=== PATIENT | female | born 1935 | race Caucasian/White ===

== ENCOUNTER 2018-09-16 21:28 | Observation (INO) ==
[2018-09-16] MEDS ORDERED: Tetanus/Diphtheria Toxoid Adult Vaccine Inj 0.5 ML Vial IM ONE (21:47)
[2018-09-16 22:13] LABS: Baso # (Auto) 0.2 th/mm3 (0.0-0.2); Eos # (Auto) 0.2 th/mm3 (0.0-0.4); Eos % (Auto) 1.7 % (0.0-4.0); Hematocrit 42.7 % (35.0-46.0); Hemoglobin 14.5 gm/dL (11.6-15.3); Lymph # (Auto) 1.2 th/mm3 (1.0-4.8); Lymph % (Auto) 12.3 % (9.0-44.0); Mean Corpuscular HGB Conc 33.9 % (32.0-36.0); Mean Corpuscular Hemoglobin 31.5 pg (27.0-34.0); Mean Platelet Volume 8.3 fL (7.0-11.0); Mono # (Auto) 0.2 th/mm3 (0.0-0.9); Mono % (Auto) 1.8 % (0.0-8.0); Neut # (Auto) 7.9 th/mm3 (1.8-7.7); Neut % (Auto) 82.2 % (16.0-70.0); Platelet Count 282 th/mm3 (150-450); Red Cell Distribution Width 12.4 % (11.6-17.2); White Blood Count 9.7 th/mm3 (4.0-11.0)
[2018-09-16 22:18] LABS: Chloride 99 meq/L (98-107); Potassium 3.6 meq/L (3.5-5.1); Sodium 135 meq/L (136-145)
--- NOTE | 2018-09-16 22:18 | ED ---
HPI General Chief complaint: Fall Stated complaint: fall Time Seen by Provider: 09/16/18 21:31 Source: patient and EMS Mode of arrival: EMS Limitations: physical limitation History of Present Illness HPI narrative: Patient is an 83-year-old female with history of dementia, diabetes, presents to the emergency room after she suffered a mechanical fall today. Patient reports that she was in bed, reports that she got up and tripped and fell into a TV cabinet. Patient did suffer a laceration to her scalp. Patient's did hear her fall and went to her bedside. As per EMS , patient's with dizziness patient having multiple episodes of passing out. Reports that she passed out about 2-3 times with each episode lasting about 20-30 seconds. Patient is not on any blood thinners, patient only complains of headache and scalp pain. Patient denies any chest pain or shortness of breath, denies any abdominal pain, no other complaints. Related Data Home Medications Medication Instructions Recorded Confirmed amlodipine 5 mg PO DAILY 09/16/18 09/16/18 atorvastatin 20 mg PO DAILY 09/16/18 09/16/18 glimepiride 4 mg PO BID 09/16/18 09/16/18 hydrochlorothiazide 25 mg PO DAILY 09/16/18 09/16/18 lisinopril 5 mg PO DAILY 09/16/18 09/16/18 metformin 500 mg PO BID 09/16/18 09/16/18 Allergies Allergy/AdvReac Type Severity Reaction Status Date / Time meperidine Allergy Mild Unverified 05/01/17 21:16 penicillin G Allergy Mild Unverified 05/01/17 21:16 "SPORINS" Allergy Mild rash Uncoded 11/25/15 10:08 Review of Systems ROS: all other systems reviewed are negative [facility] Medical History Medical History History of dementia (Acute) Hx of diabetes mellitus (Acute) Social History Social History Substance History: No History of Abuse Smoking Status: Former smoker Tobacco Type: Cigarettes How Often Do You Have a Drink Containing Alcohol: 4 or more times a week Recent Travel in [facility] within the Last 8 Weeks: No Recent Out of Country Travel within the Last 8 Weeks: No Immunization History Tetanus Immunization: Unsure Exam Narrative Exam Narrative: GENERAL: Moderate distress SKIN: Focused skin assessment warm/dry. HEAD: Normocephalic. Patient with abrasion to her nasal bridge, patient with 6 cm linear laceration to the scalp - bleeding controlled EYES: Pupils equal and round. No scleral icterus. No injection or drainage. ENT: No nasal bleeding or discharge. Mucous membranes pink and moist. NECK: Trachea midline. No JVD. Patient in cervical spine precautions CARDIOVASCULAR: Regular rate and rhythm. No murmur appreciated. RESPIRATORY: No accessory muscle use. Clear to auscultation. Breath sounds equal bilaterally. GASTROINTESTINAL: Abdomen soft, non-tender, nondistended. Hepatic and splenic margins not palpable. MUSCULOSKELETAL: No obvious deformities. No clubbing. No cyanosis. No edema. NEUROLOGICAL: Awake and alert. No obvious cranial nerve deficits. Motor grossly within normal limits. Normal speech. PSYCHIATRIC: Appropriate mood and affect; insight and judgment normal. Procedures Laceration Laceration 1: Site: scalp Size (cm): 6 Description: linear Depth: simple, single layer Pre-repair:: wound explored, irrigated extensively, deep structures intact and extensive debridement Skin layer closed with: ansley (9 ansley placed) Course Initial Documented Vital Signs Temperature 98.1 F 09/16/18 21:32 Pulse Rate 76 09/16/18 21:32 Respiratory Rate 18 09/16/18 21:32 Blood Pressure 166/76 H 09/16/18 21:32 Pulse Oximetry 98 09/16/18 21:32 Last Documented Vital Signs Temperature 98.1 F 09/16/18 21:32 Pulse Rate 76 09/16/18 21:32 Respiratory Rate 18 09/16/18 21:32 Blood Pressure 166/76 H 09/16/18 21:32 Pulse Oximetry 98 09/16/18 21:32 Medical Decision Making MDM Narrative Medical decision making narrative: During the course of the patients emergency department visit, the patients history, examination, and differential diagnosis were reviewed with the patient. The patient was placed on a melt house centrifugal operator with oximetry and frequent blood pressure monitoring. The patient had an IV access obtained and blood work sent for analysis. The patient was initially provided tetanus up date The patients laboratory studies were reviewed and remarkable for WBC 10.7, hemoglobin 14.5, hematocrit 42.7, platelets 282 Sodium 135, potassium 3.6, chloride 89, BUN 11, creatinine: 0.86 Glucose 258 INR: 1.0, pt 10.1, ptt 24.5 trop less than 0.02 Radiology studies were reviewed and remarkable for xray of chest with no acute cardiopulmonary disease CT of head with no acute intracranial abnormality seen CT of the Cervical spine with no acute bony abnormality seen, degenerative changes seen throughout Patient has been at bedside, reports that patient had a syncopal episode prior to her falling and hitting her head tonight, reports that once he revived her, he brought her to the bathroom and then she had another syncopal episode. thought that she was hypoglycemic and did give her a packet of sugar. It was initially thought that patient had a mechanical fall when in fact she had a syncopal episode. Plan to observe her overnight to [facility] case reviewed with Dr. Lara who accepts pt to service Medical Screen Exam Complete: Yes Emergency Medical Condition: Yes Lab Data Result diagrams: 09/16/18 21:55 09/16/18 21:55 Lab Results 09/16/18 09/16/18 09/16/18 Range/Units 21:55 21:55 21:55 CBC w Diff Slide review pending WBC 9.7 (4.0-11.0) th/mm3 RBC 4.60 (4.00-5.30) mil/mm3 Hgb 14.5 (11.6-15.3) gm/dL Hct 42.7 (35.0-46.0) % MCV 93.0 (80.0-100.0) fL MCH 31.5 (27.0-34.0) pg MCHC 33.9 (32.0-36.0) % RDW 12.4 (11.6-17.2) % Plt Count 282 (150-450) th/mm3 MPV 8.3 (7.0-11.0) fL Neut % (Auto) 82.2 H (16.0-70.0) % Lymph % (Auto) 12.3 (9.0-44.0) % Divide % (Auto) 1.8 (0.0-8.0) % Eos % (Auto) 1.7 (0.0-4.0) % Baso % (Auto) 2.0 (0.0-2.0) % Neut # (Auto) 7.9 H (1.8-7.7) th/mm3 Lymph # (Auto) 1.2 (1.0-4.8) th/mm3 [place] # (Auto) 0.2 (0.0-0.9) th/mm3 Eos # (Auto) 0.2 (0.0-0.4) th/mm3 Baso # (Auto) 0.2 (0.0-0.2) th/mm3 WBC Differential Manual diff final Seg Neuts % (Manual) 68 (16-70) % Band Neuts % (Manual) 3 (0-6) % Lymphocytes % (Manual) 24 (9-44) % Monocytes % (Manual) 4 (0-8) % Eosinophils % (Manual) 1 (0-4) % Abs Neuts (Manual) 6.9 (1.8-7.7) th/mm3 Differential Comment . Platelet Estimate Normal (Normal) Platelet Morphology Normal (Normal) RBC Morphology Normal (Normal) PT 10.1 (9.8-11.6) sec INR 1.0 Ratio APTT 24.5 (23.4-31.7) sec Sodium 135 L (136-145) meq/L Potassium 3.6 (3.5-5.1) meq/L Chloride 99 (98-107) meq/L Carbon Dioxide 22.7 (21.0-32.0) meq/L Anion Gap 13 (5-15) meq/L BUN 11 (7-18) mg/dL Creatinine 0.86 (0.50-1.00) mg/dL Estimated GFR 63 L (>89) mL/min Random Glucose 258 H (74-106) mg/dL Calcium 9.1 (8.5-10.1) mg/dL Troponin I Less than 0.02 L (0.02-0.05) ng/mL Imaging Data Radiologist's impression: Cervical Spine CT 09/16/18 21:46 CONCLUSION: 1. No acute bony abnormalities seen. 2. Degenerative change seen throughout. There is moderate narrowing of the thecal sac at the C3-C4 and C4-C5 level. Chest X-Ray 09/16/18 21:46 CONCLUSION: No acute cardiopulmonary disease. Head CT 09/16/18 21:46 CONCLUSION: 1. No acute intracranial abnormality is seen. 2. Atrophy. . Discharge Plan Discharge Disposition Patient Disposition: ED Admit(ED Internal Use Only) Discharge Condition Condition: Fair Discharge Order Discharge Orders: ED Use Only Admit Order (Routine); Ordered 09/16/18 Ordered By: Kimmy Daniel Discharge Details Diagnosis: Syncope and collapse, Laceration of scalp Physicians Team ED Provider: Kimmy Daniel Primary Care Provider: UNKNOWN, Attending Provider: Jani Licea ED Status: Admitted Observation Patient
[2018-09-16 22:20] LABS: Anion Gap 13 meq/L (5-15); Calcium 9.1 mg/dL (8.5-10.1); Carbon Dioxide 22.7 meq/L (21.0-32.0); Glucose,Random 258 mg/dL (74-106)
[2018-09-16 22:21] LABS: Blood Urea Nitrogen 11 mg/dL (7-18)
--- NOTE | 2018-09-16 22:22 | XR ---
EXAM DATE: 09/16/2018 10:14 PM EST AGE/SEX: 83 years / Female INDICATIONS: Trauma, fall. CLINICAL DATA: This is the patient's initial encounter. Patient reports that signs and symptoms have been present for 1 day and indicates a pain score of 0/10. MEDICAL/SURGICAL HISTORY: None. None. COMPARISON: None. FINDINGS: A single AP view of the chest demonstrates the lungs to be symmetrically aerated without evidence of mass, infiltrate or effusion. There are mild atherosclerotic changes in the aorta. The cardiomediasti nal contours are unremarkable. Osseous structures are intact. CONCLUSION: No acute cardiopulmonary disease. Electronically signed by: Milind Dubon MD Board Certified Radiologist 09/16/2018 10:20 PM MARUO Burger
[2018-09-16 22:24] LABS: Activated Partial Thrombo Time 24.5 sec (23.4-31.7); Glomerular Filtration Rate 63 mL/min (>89); Prothrombin Time 10.1 sec (9.8-11.6)
[2018-09-16 22:43] LABS: Eosinophils 1 % (0-4); Lymphocytes 24 % (9-44); Monocytes 4 % (0-8); RBC Morphology Normal (Normal)
[2018-09-16 22:44] LABS: Platelet Estimate Normal (Normal); Platelet Morphology Normal (Normal)
--- NOTE | 2018-09-16 23:03 | CT ---
EXAM DATE: 09/16/2018 10:59 PM EST AGE/SEX: 83 years / Female INDICATIONS: Trauma. Head injury. Fall. CLINICAL DATA: This is the patient's initial encounter. Patient reports that signs and symptoms have been present for 1 day and indicates a pain score of 5/10. MEDICAL/SURGICAL HISTORY: Dementia. None. RADIATION DOSE: 60.69 CTDI (mGy) COMPARISON: No prior exams available for comparison. TECHNIQUE: CT of the head without contrast. Using automated exposure control and adjustment of the mA and/or kV according to patient size, radiation dose was kept as low as reasonably achievable to ob tain optimal diagnostic quality images. DICOM format image data is available electronically for revi ew and comparison. FINDINGS: Cerebrum: The ventricles and cortical sulci are widened.. No evidence of midline shift, mass lesion , hemorrhage or acute infarction. No extraaxial fluid collections are seen. Posterior Fossa: The cerebellum and brainstem are intact. The 4th ventricle is midline. The cerebe llopontine angle is unremarkable. Extracranial: The visualized portion of the orbits is intact. Skull: The calvaria is intact. No evidence of skull fracture. CONCLUSION: 1. No acute intracranial abnormality is seen. 2. Atrophy. . Electronically signed by: Suhas Strickland MD Board Certified Radiologist 09/16/2018 11:02 PM EST
--- NOTE | 2018-09-16 23:08 | CT ---
EXAM DATE: 09/16/2018 11:00 PM EST AGE/SEX: 83 years / Female INDICATIONS: Trauma. Fall. CLINICAL DATA: This is the patient's initial encounter. Patient reports that signs and symptoms have been present for 1 day and indicates a pain score of 5/10. MEDICAL/SURGICAL HISTORY: Dementia. None. RADIATION DOSE: 25.29 CTDI (mGy) COMPARISON: No prior exams available for comparison. TECHNIQUE: Contiguous axial images were obtained using helical multirow detector technique. The vol umetric data was post-processed with multiplanar reconstruction in oblique axial, sagittal, and coron al planes. Using automated exposure control and adjustment of the mA and/or kV according to patient s ize, radiation dose was kept as low as reasonably achievable to obtain optimal diagnostic quality uriel ges. DICOM format image data is available electronically for review and comparison. FINDINGS: Vertebrae: There is fusion at the C5-C6 this level. The cervical vertebral bodies are normal in heig ht. The cervical vertebral bodies are grossly normally aligned. There is hypertrophic change at the a nterior C1-C2 articulation. Alignment: Normal. No subluxation. C2-3: There is mild diffuse disc bulge. This causes at least a mild impression on thecal sac. The ne ural foramina are patent bilaterally. There is mild facet hypertrophy seen. C3-4: The disc demonstrates decreased height. There is mild disc bulge and osteophytic ridging. Ther e is uncovertebral hypertrophy. There is moderate narrowing of the thecal sac. There is narrowing of the neural foramina bilaterally being worse on the right. C4-5: The disc demonstrates decreased height. There is mild disc bulge and osteophytic ridging causi ng moderate narrowing of the thecal sac. There is uncovertebral hypertrophy and anterior marginal ost eophytes. There is narrowing of the neural foramina bilaterally being worse on the left. C5-6: There is fusion at the disc level. A significant impression on thecal sac at this level is not seen. The neural foramina are grossly patent. There is facet hypertrophy. C6-7: The disc demonstrates decreased height. There is minimal disc bulge and osteophytic ridging wi thout significant stenosis. There is uncovertebral hypertrophy with narrowing of the neural foramina being worse on the left. C7-T1: The disc demonstrates decreased height. A significant impression on thecal sac is not seen. T here is mild facet hypertrophy. The neural foramina are grossly patent. CONCLUSION: 1. No acute bony abnormalities seen. 2. Degenerative change seen throughout. There is moderate narrowing of the thecal sac at the C3-C4 a nd C4-C5 level. Electronically signed by: Suhas Strickland MD Board Certified Radiologist 09/16/2018 11:07 PM EST
[2018-09-16] MEDS ORDERED: Ketorolac Inj 30 MG/ML (IVP) Vial IV.PUSH ONE (23:29)
[2018-09-16] MEDS ORDERED: Acetaminophen 325 MG Tablet PO PRN (23:31)
[2018-09-17] MEDS ORDERED: Dextrose 50% in Water 50 ML Vial IV.PUSH PRN (00:08)
--- NOTE | 2018-09-17 00:34 | P.HP ---
History of Present Illness Service: [facility] hospitalist Primary Care Physician: Dr.Don Bronson Chief Complaint: multiple syncopal episodes History of Present Illness: 83 year-old female with history of dementia, diabetes, presents to the emergency room after she suffered a mechanical fall today. Patient reports that she was in bed, reports that she got up and tripped and fell into a TV cabinet. Patient did suffer a laceration to her scalp. Patient's did hear her fall and went to her bedside. As per EMS, patient's with dizziness patient having multiple episodes of passing out. Reports that she passed out about 2-3 times with each episode lasting about 20-30 seconds. Patient is not on any blood thinners, patient only complains of headache and scalp pain. Patient denies any chest pain or shortness of breath, denies any abdominal pain, no other complaints. as patient seems to have had syncopal episode before falling,has laceration treated in er . Lab worjk ekg,zCT head and cervical spine sows djd somw dementia. Will be admitted for [facility] workup. Denies any predrome phase. WILL EGT 2D ECHO MR [facility] MONITIOR. Related Data - Diagnosis (1) Syncope and collapse (2) Laceration of scalp (3) Hypertension (4) Diabetes Review of Systems All other systems reviewed negative except as [facility] - History History Provided By: Patient, Systems Admin / EMT - Medical History Medical History: Medical History (Last Reviewed 09/17/18 @ 00:27 by Jani Licea MD) History of dementia Hx of diabetes mellitus - Tobacco History Tobacco Use In Past 30 Days: No Smoking Status: Former smoker Tobacco Type: Cigarettes - Alcohol History How Often Do You Have a Drink Containing Alcohol: 4 or more times a week - Substance Use History Substance History: No History of Abuse - Travel History Recent Travel in the [place] Within the Last 8 Weeks: No Recent Travel Out of the Country Within the Last 8 Weeks: No - Immunization History Tetanus Immunization: Unsure Medications and Allergies Active Medications: Active Medications Acetaminophen (Tylenol) 650 mg PO Q4H PRN PRN Reason: Temp > 100.4 Amlodipine Besylate (Norvasc) 5 mg PO DAILY TONI Atorvastatin Calcium (Lipitor) 20 mg PO DAILY TONI Dextrose (D50w Vial) 50 ml IV.PUSH UNSCH PRN PRN Reason: PER HYPOGLYCEMIA PROTOCOL Glimepiride (Amaryl) 4 mg PO BIDAC [facility] Glucagon (Glucagon Inj) 1 mg OTHER PRN PRN PRN Reason: for Hypoglycemia Protocol Hydrochlorothiazide (Hydrodiuril) 25 mg PO DAILY [facility] Insulin Aspart (Novolog Insulin Correctional Sugar Inj) 0 unit SQ Q6HR [facility]; Protocol Lisinopril (Prinivil) 5 mg PO DAILY [facility] Metformin HCl (Glucophage) 500 mg PO BIDPC [facility] Ondansetron HCl (Zofran Inj) 4 mg IV.PUSH Q6H PRN PRN Reason: NAUSEA OR VOMITING Sodium Chloride (Ns Flush) 2 ml IV.FLUSH PRN PRN PRN Reason: FLUSH AFTER USING IV ACCESS Allergies Allergy/AdvReac Type Severity Reaction Status Date / Time meperidine Allergy Mild Unverified 05/01/17 21:16 penicillin G Allergy Mild Unverified 05/01/17 21:16 "SPORINS" Allergy Mild rash Uncoded 11/25/15 10:08 Home Medications Medication Instructions Recorded Confirmed Type amlodipine 5 mg PO DAILY 09/16/18 09/16/18 History atorvastatin 20 mg PO DAILY 09/16/18 09/16/18 History glimepiride 4 mg PO BID 09/16/18 09/16/18 History hydrochlorothiazide 25 mg PO DAILY 09/16/18 09/16/18 History lisinopril 5 mg PO DAILY 09/16/18 09/16/18 History metformin 500 mg PO BID 09/16/18 09/16/18 History Exam Vital signs: Vital Signs 09/16/18 21:32 Temperature 98.1 F Pulse Rate 76 Respiratory Rate 18 Blood Pressure 166/76 H Pulse Oximetry 98 Narrative: GENERAL: SKIN: Warm and dry.LACERATIONFROMFALL HEAD: Normocephalic. EYES: No scleral icterus. No injection or drainage. NECK: Supple, trachea midline. No JVD or lymphadenopathy. CARDIOVASCULAR: Regular rate and rhythm without murmurs, gallops, or rubs. RESPIRATORY: Breath sounds equal bilaterally. No accessory muscle use. GASTROINTESTINAL: Abdomen soft, non-tender, nondistended. MUSCULOSKELETAL: No cyanosis, or edema. BACK: Nontender without obvious deformity. No CVA tenderness. GENERAL: SKIN: Warm and dry. HEAD: Normocephalic. EYES: No scleral icterus. No injection or drainage. NECK: Supple, trachea midline. No JVD or lymphadenopathy. CARDIOVASCULAR: Regular rate and rhythm without murmurs, gallops, or rubs. RESPIRATORY: Breath sounds equal bilaterally. No accessory muscle use. GASTROINTESTINAL: Abdomen soft, non-tender, nondistended. MUSCULOSKELETAL: No cyanosis, or edema. BACK: Nontender without obvious deformity. No CVA tenderness. Results - Labs CBC & Chem 7: 09/16/18 21:55 09/16/18 21:55 Labs: Laboratory Results - last 24 hr 09/16/18 09/16/18 09/16/18 21:55 21:55 21:55 CBC w Diff Slide review pending WBC 9.7 RBC 4.60 Hgb 14.5 Hct 42.7 MCV 93.0 MCH 31.5 MCHC 33.9 RDW 12.4 Plt Count 282 MPV 8.3 Neut % (Auto) 82.2 H Lymph % (Auto) 12.3 [place] % (Auto) 1.8 Eos % (Auto) 1.7 Baso % (Auto) 2.0 Neut # (Auto) 7.9 H Lymph # (Auto) 1.2 [place] # (Auto) 0.2 Eos # (Auto) 0.2 Baso # (Auto) 0.2 WBC Differential Manual diff final Seg Neuts % (Manual) 68 Band Neuts % (Manual) 3 Lymphocytes % (Manual) 24 Monocytes % (Manual) 4 Eosinophils % (Manual) 1 Abs Neuts (Manual) 6.9 Differential Comment . Platelet Estimate Normal Platelet Morphology Normal RBC Morphology Normal PT 10.1 INR 1.0 APTT 24.5 Sodium 135 L Potassium 3.6 Chloride 99 Carbon Dioxide 22.7 Anion Gap 13 BUN 11 Creatinine 0.86 Estimated GFR 63 L Random Glucose 258 H Calcium 9.1 Troponin I Less than 0.02 L - Imaging Impressions Cervical Spine CT 09/16/18 21:46 CONCLUSION: 1. No acute bony abnormalities seen. 2. Degenerative change seen throughout. There is moderate narrowing of the thecal sac at the C3-C4 and C4-C5 level. Chest X-Ray 09/16/18 21:46 CONCLUSION: No acute cardiopulmonary disease. Head CT 09/16/18 21:46 CONCLUSION: 1. No acute intracranial abnormality is seen. 2. Atrophy. . Caprini VTE Risk Assessment Caprini VTE Risk Assessment: Moderate/High Risk (score >= 2) Caprini Risk Assessment Model: Point Value = 1 Point Value = 2 Point Value = 3 Point Value = 5 Age 41-60 Minor surgery BMI > 25 kg/m2 Swollen legs Varicose veins or History of unexplained or recurrent spontaneous Oral contraceptives or hormone replacement Sepsis (< 1 month) Serious lung disease, including pneumonia (< 1 month) Abnormal pulmonary function Acute myocardial infarction Congestive heart failure (< 1 month) History of inflammatory bowel disease Medical patient at bed rest Age 61-74 Arthroscopic surgery Major open surgery (> 45 min) Laparoscopic surgery (> 45 min) Malignancy Confined to bed (> 72 hours) Immobilizing plaster cast Central venous access Age >= 75 History of VTE Family history of VTE Factor V Leiden Prothrombin [id number] Lupus anticoagulant Anticardiolipin antibodies Elevated serum homocysteine Heparin-induced thrombocytopenia Other congenital or acquired thrombophilia Stroke (< 1 month) Elective arthroplasty Hip, pelvis, or leg fracture Acute spinal cord injury (< 1 month) Prophylaxis Regimen: Total Risk Factor Score Risk Level Prophylaxis Regimen 0-1 Low Early ambulation 2 Moderate Order ONE of the following: *Sequential Compression Device (SCD) *Heparin 5000 units SQ BID 3-4 Higher Order ONE of the following medications: *Heparin 5000 units SQ TID *Enoxaparin/Lovenox 40 mg SQ daily (WT < 150 kg, CrCl > 30 mL/min) *Enoxaparin/Lovenox 30 mg SQ daily (WT < 150 kg, CrCl > 10-29 mL/min) *Enoxaparin/Lovenox 30 mg SQ BID (WT < 150 kg, CrCl > 30 mL/min) AND/OR *Sequential Compression Device (SCD) 5 or more Highest Order ONE of the following medications: *Heparin 5000 units SQ TID (Preferred with Epidurals) *Enoxaparin/Lovenox 40 mg SQ daily (WT < 150 kg, CrCl > 30 mL/min) *Enoxaparin/Lovenox 30 mg SQ daily (WT < 150 kg, CrCl > 10-29 mL/min) *Enoxaparin/Lovenox 30 mg SQ BID (WT < 150 kg, CrCl > 30 mL/min) AND *Sequential Compression Device (SCD) Assessment and Plan - Assessment (1) Syncope and collapse Code(s): R55 - Syncope and collapse Status: Acute Plan: start work up with monitr and 2decho carotid and mr brain (2) Laceration of scalp Code(s): S01.01XA - Laceration without foreign body of scalp, initial encounter Status: Acute Plan: wound care (3) Hypertension Code(s): I10 - Essential (primary) hypertension Status: Acute Plan: contrilled on meds will monitor (4) Diabetes Code(s): E11.9 - Type 2 diabetes mellitus without complications Status: Acute Plan: continue meds add sliding scale - Plan fiurther plan ascase develops Code Status: full Discussed Condition With: patient (2) Laceration of scalp Qualifiers: Encounter type: initial encounter Qualified Code(s): S01.01XA - Laceration without foreign body of scalp, initial encounter
[2018-09-17 02:01] LABS: Creatine Kinase 41 U/L (26-192)
[2018-09-17] MEDS: Insulin NovoLOG Aspart Correctional Sugar Inj SQ SCH ×4 (06:00→23:22)
[2018-09-17 07:25] LABS: Baso # (Auto) 0.2 th/mm3 (0.0-0.2); Baso % (Auto) 2.4 % (0.0-2.0); Eos # (Auto) 0.3 th/mm3 (0.0-0.4); Eos % (Auto) 3.1 % (0.0-4.0); Hematocrit 43.3 % (35.0-46.0); Hemoglobin 14.2 gm/dL (11.6-15.3); Lymph # (Auto) 2.2 th/mm3 (1.0-4.8); Lymph % (Auto) 26.6 % (9.0-44.0); Mean Corpuscular HGB Conc 32.7 % (32.0-36.0); Mean Corpuscular Hemoglobin 30.9 pg (27.0-34.0); Mean Corpuscular Volume 94.6 fL (80.0-100.0); Mean Platelet Volume 9.1 fL (7.0-11.0); Mono # (Auto) 0.6 th/mm3 (0.0-0.9); Mono % (Auto) 7.6 % (0.0-8.0); Neut # (Auto) 5.1 th/mm3 (1.8-7.7); Neut % (Auto) 60.3 % (16.0-70.0); Platelet Count 319 th/mm3 (150-450); Red Blood Count 4.58 mil/mm3 (4.00-5.30); Red Cell Distribution Width 13.1 % (11.6-17.2); White Blood Count 8.4 th/mm3 (4.0-11.0)
[2018-09-17 07:37] LABS: Chloride 103 meq/L (98-107); Potassium 3.6 meq/L (3.5-5.1); Sodium 138 meq/L (136-145)
[2018-09-17 07:46] LABS: Albumin 3.1 g/dL (3.4-5.0); Anion Gap 9 meq/L (5-15); Calcium 9.1 mg/dL (8.5-10.1); Carbon Dioxide 25.7 meq/L (21.0-32.0); Glucose,Random 158 mg/dL (74-106)
[2018-09-17 07:47] LABS: Blood Urea Nitrogen 12 mg/dL (7-18)
[2018-09-17 07:48] LABS: Alanine Aminotransferase 14 U/L (10-53); Aspartate Aminotransferase 9 U/L (15-37)
[2018-09-17 07:49] LABS: Total Protein 6.6 g/dL (6.4-8.2)
[2018-09-17 07:50] LABS: Glomerular Filtration Rate 64 mL/min (>89)
[2018-09-17 07:51] LABS: Alkaline Phosphatase 64 U/L (45-117)
[2018-09-17 07:54] LABS: Creatine Kinase 47 U/L (26-192)
[2018-09-17] MEDS ORDERED: Glimepiride 4 MG Tablet PO SCH (09:00)
[2018-09-17] MEDS: Glimepiride 4 MG Tablet PO SCH ×2 (09:37→20:01)
[2018-09-17] MEDS: Lisinopril 5 MG Tablet PO SCH (09:38)
[2018-09-17] MEDS: hydroCHLOROthiazide 25 MG Tablet PO SCH (09:38)
--- NOTE | 2018-09-17 10:31 | P.PN ---
Subjective Interval history: Patient feeling well no compliants with syncopal episode last night ansley on scalp ,under work up will check results possible d/c later today . Physical Exam Vital signs: Vital Signs 09/16/18 21:32 09/17/18 01:18 09/17/18 04:00 Temperature 98.1 F 98.1 F Pulse Rate 76 70 80 Respiratory Rate 18 16 16 Blood Pressure 166/76 H 146/70 H 155/82 H Pulse Oximetry 98 96 97 09/17/18 04:26 09/17/18 05:45 09/17/18 08:00 Temperature 97.6 F Pulse Rate 80 76 Respiratory Rate 19 Blood Pressure 146/71 H Pulse Oximetry 98 98 Intake & Output 09/16/18 09/17/18 09/17/18 18:59 06:59 18:59 Weight 57.9 kg Other: # Voids 1 Date of Last Bowel Movement 09/16/18 09/16/18 Weight On Admission 58.7 kg Narrative: GENERAL: SKIN: Warm and dry.LACERATIONFROMFALL HEAD: Normocephalic. EYES: No scleral icterus. No injection or drainage. NECK: Supple, trachea midline. No JVD or lymphadenopathy. CARDIOVASCULAR: Regular rate and rhythm without murmurs, gallops, or rubs. RESPIRATORY: Breath sounds equal bilaterally. No accessory muscle use. GASTROINTESTINAL: Abdomen soft, non-tender, nondistended. MUSCULOSKELETAL: No cyanosis, or edema. BACK: Nontender without obvious deformity. No CVA tenderness. GENERAL: SKIN: Warm and dry. HEAD: Normocephalic. EYES: No scleral icterus. No injection or drainage. NECK: Supple, trachea midline. No JVD or lymphadenopathy. CARDIOVASCULAR: Regular rate and rhythm without murmurs, gallops, or rubs. RESPIRATORY: Breath sounds equal bilaterally. No accessory muscle use. GASTROINTESTINAL: Abdomen soft, non-tender, nondistended. MUSCULOSKELETAL: No cyanosis, or edema. BACK: Nontender without obvious deformity. No CVA tenderness. Results - Labs CBC & Chem 7: 09/17/18 05:45 09/17/18 05:45 Laboratory Results - last 24 hr 09/16/18 09/16/18 09/16/18 21:55 21:55 21:55 CBC w Diff Slide review pending WBC 9.7 RBC 4.60 Hgb 14.5 Hct 42.7 MCV 93.0 MCH 31.5 MCHC 33.9 RDW 12.4 Plt Count 282 MPV 8.3 Neut % (Auto) 82.2 H Lymph % (Auto) 12.3 [place] % (Auto) 1.8 Eos % (Auto) 1.7 Baso % (Auto) 2.0 Neut # (Auto) 7.9 H Lymph # (Auto) 1.2 [place] # (Auto) 0.2 Eos # (Auto) 0.2 Baso # (Auto) 0.2 WBC Differential Manual diff final Seg Neuts % (Manual) 68 Band Neuts % (Manual) 3 Lymphocytes % (Manual) 24 Monocytes % (Manual) 4 Eosinophils % (Manual) 1 Abs Neuts (Manual) 6.9 Differential Comment . Platelet Estimate Normal Platelet Morphology Normal RBC Morphology Normal PT 10.1 INR 1.0 APTT 24.5 Sodium 135 L Potassium 3.6 Chloride 99 Carbon Dioxide 22.7 Anion Gap 13 BUN 11 Creatinine 0.86 Estimated GFR 63 L POC Glucose Random Glucose 258 H Calcium 9.1 Total Bilirubin AST ALT Alkaline Phosphatase Total Creatine Kinase Troponin I Less than 0.02 L Total Protein Albumin 09/17/18 09/17/18 09/17/18 01:05 05:45 05:45 CBC w Diff Auto diff final WBC 8.4 RBC 4.58 Hgb 14.2 Hct 43.3 MCV 94.6 MCH 30.9 MCHC 32.7 RDW 13.1 Plt Count 319 MPV 9.1 Neut % (Auto) 60.3 Lymph % (Auto) 26.6 [place] % (Auto) 7.6 Eos % (Auto) 3.1 Baso % (Auto) 2.4 H Neut # (Auto) 5.1 Lymph # (Auto) 2.2 [place] # (Auto) 0.6 Eos # (Auto) 0.3 Baso # (Auto) 0.2 WBC Differential . Seg Neuts % (Manual) Band Neuts % (Manual) Lymphocytes % (Manual) Monocytes % (Manual) Eosinophils % (Manual) Abs Neuts (Manual) Differential Comment . Platelet Estimate Platelet Morphology RBC Morphology PT INR APTT Sodium Potassium Chloride Carbon Dioxide Anion Gap BUN Creatinine Estimated GFR POC Glucose Random Glucose Calcium Total Bilirubin AST ALT Alkaline Phosphatase Total Creatine Kinase 41 47 Troponin I Less than 0.02 L Less than 0.02 L Total Protein Albumin 09/17/18 09/17/18 05:45 05:57 CBC w Diff WBC RBC Hgb Hct MCV MCH MCHC RDW Plt Count MPV Neut % (Auto) Lymph % (Auto) [place] % (Auto) Eos % (Auto) Baso % (Auto) Neut # (Auto) Lymph # (Auto) [place] # (Auto) Eos # (Auto) Baso # (Auto) WBC Differential Seg Neuts % (Manual) Band Neuts % (Manual) Lymphocytes % (Manual) Monocytes % (Manual) Eosinophils % (Manual) Abs Neuts (Manual) Differential Comment Platelet Estimate Platelet Morphology RBC Morphology PT INR APTT Sodium 138 Potassium 3.6 Chloride 103 Carbon Dioxide 25.7 Anion Gap 9 BUN 12 Creatinine 0.85 Estimated GFR 64 L POC Glucose 159 H Random Glucose 158 H D Calcium 9.1 Total Bilirubin 0.5 AST 9 L ALT 14 Alkaline Phosphatase 64 Total Creatine Kinase Troponin I Total Protein 6.6 Albumin 3.1 L - Imaging Impressions Cervical Spine CT 09/16/18 21:46 CONCLUSION: 1. No acute bony abnormalities seen. 2. Degenerative change seen throughout. There is moderate narrowing of the thecal sac at the C3-C4 and C4-C5 level. Chest X-Ray 09/16/18 21:46 CONCLUSION: No acute cardiopulmonary disease. Head CT 09/16/18 21:46 CONCLUSION: 1. No acute intracranial abnormality is seen. 2. Atrophy. . Assessment and Plan - Assessment (1) Syncope and collapse Code(s): R55 - Syncope and collapse Status: Acute Plan: start work up with monitr and 2decho carotid and mr brain will check results (2) Laceration of scalp Code(s): S01.01XA - Laceration without foreign body of scalp, initial encounter Status: Acute Plan: wound care (3) Hypertension Code(s): I10 - Essential (primary) hypertension Status: Acute Plan: contrilled on meds will monitor (4) Diabetes Code(s): E11.9 - Type 2 diabetes mellitus without complications Status: Acute Plan: continue meds add sliding scale - Plan review tests if all stable discharge later today (2) Laceration of scalp Qualifiers: Encounter type: initial encounter Qualified Code(s): S01.01XA - Laceration without foreign body of scalp, initial encounter
[2018-09-17] MEDS: amLODIPine 5 MG Tablet PO SCH (10:38)
--- NOTE | 2018-09-17 14:34 | ECHRPT ---
Indication: Syncope CONCLUSIONS The left ventricular systolic function is normal with an estimated ejection fraction in the range of 55-60%. Doppler parameters are consistent with impaired left ventricular relaxtion (grade 1 diastolic dysfun ction). There was redundancy of the interatrial septum, with criteria for septal aneurysm (benign finding). No atrial level shunt is demonstrated by color flow Doppler interrogation. Mild mitral valve regurgitation. There is trace tricuspid valve regurgitation. BP: / HR: Rhythm: MEASUREMENTS (Male / Female) Normal Values Technical Quality:Technically difficult study 2D ECHO LV Diastolic Diameter PLAX 3.7 cm 4.2 - 5.9 / 3.9 - 5.3 cm LV Systolic Diameter PLAX 2.7 cm IVS Diastolic Thickness 0.9 cm 0.6 - 1.0 / 0.6 - 0.9 cm LVPW Diastolic Thickness 0.9 cm 0.6 - 1.0 / 0.6 - 0.9 cm LV Relative Wall Thickness 0.5 RV Internal Dim ED PLAX 3.1 cm LVOT Diameter 1.9 cm Aortic Root Diameter 2.6 cm LA Systolic Diameter LX 2.8 cm 3.0 - 4.0 / 2.7 - 3.8 cm DOPPLER AV Peak Velocity 115.0 cm/s AV Peak Gradient 5.3 mmHg LVOT Peak Velocity 89.8 cm/s LVOT Peak Gradient 3.2 mmHg AV Area Cont Eq pk 2.2 cm Mitral E Point Velocity 67.6 cm/s Mitral A Point Velocity 98.7 cm/s Mitral E to A Ratio 0.7 LV E' Lateral Velocity 3.8 cm/s Mitral E to LV E' Lateral Ratio 17.8 LV E' Septal Velocity 4.0 cm/s Mitral E to LV E' Septal Ratio 16.9 TR Peak Velocity 238.0 cm/s TR Peak Gradient 22.7 mmHg Right Atrial Pressure 10.0 mmHg Pulmonary Artery Systolic Pressu 32.7 mmHg Right Ventricular Systolic Press 32.7 mmHg PV Peak Velocity 78.7 cm/s PV Peak Gradient 2.5 mmHg FINDINGS LEFT VENTRICLE Normal left ventricular size. Wall thickness is measured at the upper limits of normal. The left ventricular systolic function is normal with an estimated ejection fraction in the range of 55-60%. Doppler parameters are consistent with impaired left ventricular relaxtion (grade 1 diastolic dysfun ction). RIGHT VENTRICLE Grossly normal LEFT ATRIUM The left atrial size is normal. RIGHT ATRIUM The right atrial size is normal. ATRIAL SEPTUM There was redundancy of the interatrial septum, with criteria for septal aneurysm (benign finding). No atrial level shunt is demonstrated by color flow Doppler interrogation. AORTA The aortic root and proximal ascending aorta are normal in size on limited imaging. MITRAL VALVE Structurally normal mitral valve. No mitral valve stenosis. Mild mitral valve regurgitation. AORTIC VALVE Trileaflet aortic valve. No aortic valve stenosis or regurgitation. TRICUSPID VALVE Structurally normal tricuspid valve. There is trace tricuspid valve regurgitation. The estimated pulmonary arterial pressure is 33 mmHg. PULMONARY VALVE No pulmonary valve regurgitation or stenosis. VESSELS The inferior vena cava is normal in size. PERICARDIUM No pericardial effusion. Michael Wilson DO (Electronically Signed) Final Date:17 September 2018 14:33
--- NOTE | 2018-09-17 14:43 | ECG ---
Date Performed: 09/17/2018 Time Performed: 05:27:54 PTAGE: 83 years EKG: Sinus rhythm NORMAL ECG Since the PREVIOUS TRACING , no significant change noted PREVIOUS TRACIN09/17/2018 01.18 DOCTOR: Matias Eaton Interpretating Date/Time 09/17/2018 14:42:43
--- NOTE | 2018-09-17 14:43 | ECG ---
Date Performed: 09/17/2018 Time Performed: 01:18:06 PTAGE: 83 years EKG: Sinus rhythm NORMAL ECG Since the PREVIOUS TRACING , no significant change noted PREVIOUS TRACIN09/16/2018 22.27 DOCTOR: Matias Eaton Interpretating Date/Time 09/17/2018 14:42:53
--- NOTE | 2018-09-17 14:44 | ECG ---
Date Performed: 09/16/2018 Time Performed: 22:27:20 PTAGE: 83 years EKG: Sinus rhythm MODERATE ST DEPRESSION ABNORMAL ECG Since the PREVIOUS TRACING , no significant change noted PREVIOUS TRACIN05/18/2015 09.06 DOCTOR: Matias Eaton Interpretating Date/Time 09/17/2018 14:43:05
--- NOTE | 2018-09-17 15:07 | US ---
EXAM DATE: 09/17/2018 3:01 PM EST AGE/SEX: 83 years / Female INDICATIONS: Syncope. CLINICAL DATA: This is the patient's initial encounter. Patient reports that signs and symptoms have been present for 1 day and indicates a pain score of 0/10. MEDICAL/SURGICAL HISTORY: . Dementia. Diabetes mellitus. Former smoker. None. COMPARISON: No prior exams available for comparison. VELOCITY PARAMETERS: ICA/CCA Ratio: Right 1.1 , Left 0.8 ICA: Right 84 cm/sec, Left 76 cm/sec CCA: Right 78 cm/sec, Left 96 cm/sec ECA: Right 85 cm/sec, Left 90 cm/sec Vertebral: Right 95 cm/sec antegrade, Left 51 cm/sec antegrade FINDINGS: Right Carotid: Mild arteriosclerotic plaque is visualized.The waveforms are within normal limits. Left Carotid: Mild arteriosclerotic plaque is visualized. The waveforms are within normal limits. Other: None. CONCLUSION: 1. Right Internal Carotid Artery: Mild plaque without significant stenosis. 2. Left Internal Carotid Artery: Mild plaque without significant stenosis. Electronically signed by: Frantz Medina MD Board Certified Radiologist 09/17/2018 3:06 PM EST
--- NOTE | 2018-09-17 16:09 | P.DCO ---
- Home Health Nursing Order: Medical education, Signs/symptoms of disease process, Diabetic education , Medication education-adverse effect - Case Management Consult Case Management Consult-Home Health: Yes - Certification I have seen patient Anne Hastings on 09/17/18. My clinical findings support the need for the requested home health care services because: Medication compliance is questionable I certify that my clinical findings support that this patient is homebound because: Unsteady gait/balance
[2018-09-18] MEDS: Insulin NovoLOG Aspart Correctional Sugar Inj SQ SCH (05:40)
[2018-09-18] MEDS: Glimepiride 4 MG Tablet PO SCH (08:06)
[2018-09-18] MEDS: hydroCHLOROthiazide 25 MG Tablet PO SCH (08:06)
[2018-09-18] MEDS: Lisinopril 5 MG Tablet PO SCH (08:06)
[2018-09-18] MEDS: amLODIPine 5 MG Tablet PO SCH (08:07)
[2018-09-18 08:22] VITALS: BP 111/72; PULSE 73; RESP 18; TEMP 97.7; O2SAT 98
[2018-09-18] MEDS ORDERED: Gadobutrol PF 15 MMOL/15 ML Vial (for RAD) IV.SIG ONE (08:44)
--- NOTE | 2018-09-18 09:04 | MR ---
EXAM DATE: 09/18/2018 8:54 AM EST AGE/SEX: 83 years / Female INDICATIONS: . Syncope. CLINICAL DATA: This is the patient's initial encounter. Patient reports that signs and symptoms have been present for 1 day and indicates a pain score of 0/10. MEDICAL/SURGICAL HISTORY: Hypertension. Diabetes mellitus type II. Dementia. None. COMPARISON: POI, MR BRAIN W/O CONTRAST, 02/13/2015. . TECHNIQUE: Multiplanar, multisequence examination of the brain was performed without and with 6 ml Ga davist (gadobutrol) contrast as a single exam dose. FINDINGS: There is no evidence for intracranial hemorrhage, mass effect, mass lesions, edema, or extra-axial fl uid collections. There are no signs of acute infarction for technique. The diffusion portion, and p ostcontrast portion are unremarkable. Moderate degree of brain atrophy is seen. Moderate periventri cular white matter changes are seen nonspecific mostly consistent with chronic small vessel ischemic changes. There is an area of soft tissue scalp swelling extends for 2.8 cm in AP diameter in the left frontal region with surgical sutures at the site . CONCLUSION: Chronic small vessel ischemic and atrophic changes, scalp swelling. Electronically signed by: Hali Rodarte MD Board Certified Radiologist 09/18/2018 9:03 AM EST
--- NOTE | 2018-09-18 11:27 | P.DS ---
Date of admission: 09/16/18 23:28 Primary care physician: UNKNOWN white Attending physician on discharge: Jani Licea Anticipated date of discharge: 09/18/17 Brief History from admission: 83 year-old female with history of dementia, diabetes, presents to the emergency room after she suffered a mechanical fall today. Patient reports that she was in bed, reports that she got up and tripped and fell into a TV cabinet. Patient did suffer a laceration to her scalp. Patient's did hear her fall and went to her bedside. As per EMS, patient's with dizziness patient having multiple episodes of passing out. Reports that she passed out about 2-3 times with each episode lasting about 20-30 seconds. Patient is not on any blood thinners, patient only complains of headache and scalp pain. Patient denies any chest pain or shortness of breath, denies any abdominal pain, no other complaints. as patient seems to have had syncopal episode before falling,has laceration treated in er . Lab worjk ekg,zCT head and cervical spine sows djd somw dementia. Will be admitted for fhrther workup. Denies any predrome phase. WILL EGT 2D ECHO MR BRAINHOLTERT MONITIOR. Related Data DS: Diagnosis - Discharge Diagnosis (1) Syncope and collapse Status: Acute (2) Laceration of scalp Status: Acute (3) Hypertension Status: Acute (4) Diabetes Status: Acute DS: Summary Hospital Course: Patient admitted with hx dementia after having syncopal episode and hit head required ansley remove 1 week. She was placed on monitor thought hospital stay and no significant findpatient work up included CT head,neck,carotid 2d echo grade 1 dystolic dysfunction, MR brain-atrophy consistent with patient dementia. Possible etiology for syncope could have been sugar event as states did have 2 drinks before episode. Patient has been stable through out hospital stay. Will follow up in office ,within 1 week. Will probably get out patient Holter. - Time Spent with Patient Total time spent providing and/or coordinating discharge services: Greater than 30 minutes - Quality: VTE Deep Vein Thrombosis/Pulmonary Embolism Present on Admission: No Exam Vital signs: Vital Signs 09/17/18 12:00 09/17/18 16:00 09/17/18 19:34 Temperature 97.9 F 98.1 F Pulse Rate 76 Respiratory Rate 18 Blood Pressure 127/59 L 121/55 L Pulse Oximetry 97 96 09/17/18 20:00 09/18/18 00:00 09/18/18 04:00 Temperature 97.7 F 98 F 97.5 F L Pulse Rate 80 73 71 Respiratory Rate 20 20 20 Blood Pressure 127/71 119/87 123/75 Pulse Oximetry 97 95 99 09/18/18 08:00 Temperature 97.7 F Pulse Rate 73 Respiratory Rate 18 Blood Pressure 111/72 Pulse Oximetry 98 Intake & Output 09/17/18 09/18/18 09/18/18 18:59 06:59 18:59 Intake Total 750 / 750 Output Total 600 / 600 Balance 150 / 150 Weight 60.1 kg Intake: Oral 750 / 750 Output: Urine 600 / 600 Other: # Voids 3 3 Date of Last Bowel Movement 09/16/18 09/16/18 09/16/18 Narrative: GENERAL: SKIN: Warm and dry.LACERATIONFROMFALL HEAD: Normocephalic. EYES: No scleral icterus. No injection or drainage. NECK: Supple, trachea midline. No JVD or lymphadenopathy. CARDIOVASCULAR: Regular rate and rhythm without murmurs, gallops, or rubs. RESPIRATORY: Breath sounds equal bilaterally. No accessory muscle use. GASTROINTESTINAL: Abdomen soft, non-tender, nondistended. MUSCULOSKELETAL: No cyanosis, or edema. BACK: Nontender without obvious deformity. No CVA tenderness. GENERAL: SKIN: Warm and dry. HEAD: Normocephalic. EYES: No scleral icterus. No injection or drainage. NECK: Supple, trachea midline. No JVD or lymphadenopathy. CARDIOVASCULAR: Regular rate and rhythm without murmurs, gallops, or rubs. RESPIRATORY: Breath sounds equal bilaterally. No accessory muscle use. GASTROINTESTINAL: Abdomen soft, non-tender, nondistended. MUSCULOSKELETAL: No cyanosis, or edema. BACK: Nontender without obvious deformity. No CVA tenderness. Results Procedures completed during hospitalization: mr ,ct head,neck 2d echo carotid ultrasound Labs on day of discharge: Labs from last 24 hours 09/18/18 09/17/18 09/17/18 05:36 23:21 16:37 POC Glucose 142 H 146 H 116 H 09/17/18 12:29 POC Glucose 121 H - Impressions ITS Impressions Cervical Spine CT 09/16/18 21:46 CONCLUSION: 1. No acute bony abnormalities seen. 2. Degenerative change seen throughout. There is moderate narrowing of the thecal sac at the C3-C4 and C4-C5 level. Chest X-Ray 09/16/18 21:46 CONCLUSION: No acute cardiopulmonary disease. Head CT 09/16/18 21:46 CONCLUSION: 1. No acute intracranial abnormality is seen. 2. Atrophy. . Carotid Doppler Study 09/17/18 00:00 CONCLUSION: 1. Right Internal Carotid Artery: Mild plaque without significant stenosis. 2. Left Internal Carotid Artery: Mild plaque without significant stenosis. Head MRI 09/18/18 00:00 CONCLUSION: Chronic small vessel ischemic and atrophic changes, scalp swelling. Discharge Plan - Discharge Disposition Patient Disposition: Disch /Home Health Service - Discharge Condition Condition: Fair - Discharge Order Discharge Orders: Discharge Order (Routine); Ordered 09/18/18 Ordered By: Jani Licea ED Use Only Admit Order (Routine); Ordered 09/16/18 Ordered By: Kimmy Daniel - Discharge Details Anticipated Discharge Date: 09/18/17 - Physicians Team Primary Care Provider: UNKNOWN, Attending Provider: Jani Licea
== END 2018-09-18 12:38 | disposition home health service (06) ==
LOC: PHEDA 21:28 → PHED 21:28 → PH3 09-17 01:31
PROVIDERS: ADMIT Internal Medicine; ATTEND Internal Medicine
CPT/HCPCS: 12002; 70450; 70553; 71010; 71045; 72125; 80048; 80053; 82550; 82948; 82962; 84484; 85025; 85610; 85730; 90471; 90702; 90714; 90718; 93005; 93306; 93880; 96374; 97162; 99285; A9585; G0378; G8987; G8988; J1885